=== PATIENT | female | born 1940 | race Caucasian/White ===

== ENCOUNTER 2019-05-15 10:53 | Inpatient (IN) | payer MEDICARE, OTHER ==
[~2019-05-15] VITALS: Ht 162.6 cm; Wt 71.2 kg
--- NOTE | 2019-05-15 11:29 | EKG ---
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
[2019-05-15 11:43] LABS: BASO # 0.1 x10^3/uL (0.0-0.2); BASO % 1 % (0-3); EOS # 0.6 x10^3/uL (0.0-0.7); EOS % 8 % (0-3); HEMATOCRIT 40.3 % (36.0-47.0); HEMOGLOBIN 13.2 g/dL (12.0-15.5); LYMPH % 30 % (24-48); MEAN CORPUSCULAR HEMOGLOBIN 30 pg (25-35); MEAN CORPUSCULAR HGB CONC 33 g/dL (31-37); MEAN CORPUSCULAR VOLUME 91 fL (79-100); MONO # 0.7 x10^3/uL (0.0-1.1); MONO % 10 % (0-9); NEUT # 3.5 x10^3uL (1.8-7.7); NEUT % 51 % (31-73); PLATELET COUNT 257 x10^3/uL (140-400); RED BLOOD COUNT 4.45 x10^6/uL (3.50-5.40); RED CELL DISTRIBUTION WIDTH 13.7 % (11.5-14.5); WHITE BLOOD COUNT 6.9 x10^3/uL (4.0-11.0)
[2019-05-15 12:02] LABS: ALBUMIN/GLOBULIN RATIO 0.7 (1.0-1.7); CALCIUM 9.4 mg/dL (8.5-10.1); CREATININE 0.9 mg/dL (0.6-1.0); GFR 60.6; MAGNESIUM 1.8 mg/dL (1.8-2.4); POTASSIUM 4.1 mmol/L (3.5-5.1); TOTAL BILIRUBIN 0.3 mg/dL (0.2-1.0); TOTAL PROTEIN 7.2 g/dL (6.4-8.2)
[2019-05-15 12:15] LABS: BACTERIA,URINE 0 /HPF (0-FEW); BILIRUBIN,URINE NEG (NEG); CLARITY,URINE CLEAR; COLOR,URINE YELLOW; GLUCOSE,URINE NEG (NEG); NITRITE,URINE NEG (NEG); RBC,URINE OCC /HPF (0-2); SQUAMOUS EPITHELIAL CELL,UR OCC /LPF; UROBILINOGEN,URINE 0.2 mg/dL (0.2 mg/dL); WBC,URINE OCC /HPF (0-4)
--- NOTE | 2019-05-15 12:18 | RAD ---
PORTABLE CHEST 1V INDICATION: Chest pain. COMPARISON STUDY: 02/12/2015. FINDINGS: Lungs: Normal lung volume. No pulmonary mass or consolidation. The tracheobronchial tree and hilar structures are normal. Pleura: No pleural effusion or pneumothorax. Heart and Mediastinum: The cardiomediastinal silhouette is normal. Tortuosity of the thoracic aorta. IMPRESSION: No acute cardiopulmonary process. Electronically signed by: Nitin Ugarte MD (05/15/2019 12:15 PM) [facility]
--- NOTE | 2019-05-15 12:40 | PHYS DOC ---
Past History Past Medical History: Dementia, Diabetes, High Cholesterol, Hypertension, UTI, Other Additional Past Medical Histor: OSTEOPORESIS Past Surgical History: Other Additional Past Surgical Histo: NO SURGICAL HX PROVIDED Alcohol Use: None Drug Use: None Adult General Chief Complaint Chief Complaint: SHORTNESS OF BREATH HPI HPI Patient is a 78-year-old female who arrives via EMS with report of chest tightne ss that started this morning. Patient indicates that when she woke this morning she had some dizziness and later developed the chest tightness. Patient states that she still has a tightness in her chest and she rates that at a 4 out of 10. She denies any nausea, vomiting or diaphoresis. She states that nothing seems to worsen or improve the symptoms.[] Review of Systems Review of Systems Constitutional: Denies fever or chills [] Respiratory: Denies cough or shortness of breath [] Cardiovascular: No additional information not addressed in HPI [] GI: Denies abdominal pain, nausea, vomiting or diarrhea [] Integument: Denies rash or skin lesions [] Neurologic: Denies headache, focal weakness or sensory changes [] All other systems were reviewed and found to be within normal limits, except as documented in this note. Allergies Allergies Allergies Coded Allergies Type Severity Reaction Last Updated Verified ampicillin Allergy Unknown 05/15/19 Yes Physical Exam Physical Exam Constitutional: Well developed, well nourished, no acute distress, non-toxic appearance. [] HENT: Normocephalic, atraumatic, bilateral external ears normal, oropharynx moist, no oral exudates, nose normal. [] Eyes: PERRLA, EOMI, conjunctiva normal, no discharge. [] Neck: Normal range of motion, no tenderness, supple, no stridor. [] Cardiovascular: Regular rate and rhythm[] Lungs & Thorax: Bilateral breath sounds clear to auscultation [] Abdomen: Bowel sounds normal, soft, no tenderness. [] Skin: Warm, dry, no erythema, no rash. [] Extremities: No tenderness, no cyanosis, no clubbing, ROM intact with 2+ pitting edema to bilateral lower extremities. [] Neurologic: Alert and oriented X 3, no focal deficits noted. [] Current Patient Data Vital Signs Vital Signs Date Time Temp Pulse Resp B/P (MAP) Pulse Ox O2 Delivery O2 Flow Rate FiO2 05/15/19 12:00 75 20 161/76 (104) 95 Room Air 05/15/19 10:55 97.6 Lab Results Laboratory Tests Test 05/15/19 11:27 05/15/19 11:37 White Blood Count 6.9 x10^3/uL (4.0-11.0) Red Blood Count 4.45 x10^6/uL (3.50-5.40) Hemoglobin 13.2 g/dL (12.0-15.5) Hematocrit 40.3 % (36.0-47.0) Mean Corpuscular Volume 91 fL (79-100) Mean Corpuscular Hemoglobin 30 pg (25-35) Mean Corpuscular Hemoglobin Concent 33 g/dL (31-37) Red Cell Distribution Width 13.7 % (11.5-14.5) Platelet Count 257 x10^3/uL (140-400) Neutrophils (%) (Auto) 51 % (31-73) Lymphocytes (%) (Auto) 30 % (24-48) Monocytes (%) (Auto) 10 % (0-9) H Eosinophils (%) (Auto) 8 % (0-3) H Basophils (%) (Auto) 1 % (0-3) Neutrophils # (Auto) 3.5 x10^3uL (1.8-7.7) Lymphocytes # (Auto) 2.0 x10^3/uL (1.0-4.8) Monocytes # (Auto) 0.7 x10^3/uL (0.0-1.1) Eosinophils # (Auto) 0.6 x10^3/uL (0.0-0.7) Basophils # (Auto) 0.1 x10^3/uL (0.0-0.2) Sodium Level 139 mmol/L (136-145) Potassium Level 4.1 mmol/L (3.5-5.1) Chloride Level 104 mmol/L (98-107) Carbon Dioxide Level 26 mmol/L (21-32) Anion Gap 9 (6-14) Blood Urea Nitrogen 15 mg/dL (7-20) Creatinine 0.9 mg/dL (0.6-1.0) Estimated GFR (Cockcroft-Gault) 60.6 BUN/Creatinine Ratio 17 (6-20) Glucose Level 87 mg/dL (70-99) Calcium Level 9.4 mg/dL (8.5-10.1) Magnesium Level 1.8 mg/dL (1.8-2.4) Total Bilirubin 0.3 mg/dL (0.2-1.0) Aspartate Amino Transferase (AST) 18 U/L (15-37) Alanine Aminotransferase (ALT) 18 U/L (14-59) Alkaline Phosphatase 75 U/L (46-116) Troponin I Quantitative < 0.017 ng/mL (0-0.055) GF-Lmx-Y-Type Natriuretic Peptide 87 pg/mL (0-449) Total Protein 7.2 g/dL (6.4-8.2) Albumin 3.0 g/dL (3.4-5.0) L Albumin/Globulin Ratio 0.7 (1.0-1.7) L Urine Collection Type Unknown Urine Color Yellow Urine Clarity Clear Urine pH 6.5 Urine Specific [place] 1.015 Urine Protein Neg (NEG-TRACE) Urine Glucose (UA) Neg mg/dL (NEG) Urine Ketones (Stick) Neg mg/dL (NEG) Urine Blood Neg (NEG) Urine Nitrite Neg (NEG) Urine Bilirubin Neg (NEG) Urine Urobilinogen Dipstick 0.2 mg/dL (0.2 mg/dL) Urine Leukocyte Esterase Neg (NEG) Urine RBC Occ /HPF (0-2) Urine WBC Occ /HPF (0-4) Urine Squamous Epithelial Cells Occ /LPF Urine Bacteria 0 /HPF (0-FEW) EKG EKG EKG demonstrates normal sinus rhythm with rate of 69.[] Radiology/Procedures Radiology/Procedures [] Impressions: PROCEDURE: PORTABLE CHEST 1V PORTABLE CHEST 1V INDICATION: Chest pain. COMPARISON STUDY: 02/12/2015. FINDINGS: Lungs: Normal lung volume. No pulmonary mass or consolidation. The tracheobronchial tree and hilar structures are normal. Pleura: No pleural effusion or pneumothorax. Heart and Mediastinum: The cardiomediastinal silhouette is normal. Tortuosity of the thoracic aorta. IMPRESSION: No acute cardiopulmonary process. Electronically signed by: Nitin Ugarte MD (05/15/2019 12:15 PM) [facility] Course & Med Decision Making Course & Med Decision Making Pertinent Labs and Imaging studies reviewed. (See chart for details) [] Dragon Disclaimer Dragon Disclaimer This electronic medical record was generated, in whole or in part, using a voice recognition dictation system. Departure Departure: Impression: Primary Impression: Chest pain Disposition: ADMITTED INPATIENT Admitting Physician: Marcy Ramos Condition: IMPROVED Referrals: JAYNA LUI MD (PCP) Problem Qualifiers Primary Impression: Chest pain Chest pain type: unspecified Qualified Codes: R07.9 - Chest pain, unspecified JUNAID MILTON Jr. DO May 15, 2019 12:40
[2019-05-15] MEDS ORDERED: MORPHINE SULFATE 2 MG/ML DISP.SYRIN. IV PRN (12:45)
[2019-05-15] MEDS ORDERED: ONDANSETRON PF 4 MG/2 ML VIAL. IV PRN (12:45)
[2019-05-15] MEDS ORDERED: ASPI-630 PO (15:07)
[2019-05-15] MEDS ORDERED: AMLO5TAB4 PO (15:07)
[2019-05-15] MEDS ORDERED: PARO10TA57 PO (15:07)
[2019-05-15] MEDS ORDERED: LOSA50TA86 PO (15:07)
[2019-05-15] MEDS ORDERED: ACET325T9 PO (15:07)
[2019-05-15] MEDS ORDERED: ATOR10TA60 PO (15:13)
[2019-05-15] MEDS ORDERED: LORA-254 PO (15:13)
[2019-05-15] MEDS ORDERED: OLOP2.5D5 OP (15:13)
[2019-05-15] MEDS ORDERED: FLUT16SP21 NS (15:13)
[2019-05-15] MEDS ORDERED: METF10007 PO (15:13)
[2019-05-15] MEDS ORDERED: MEMA10TA PO (15:13)
[2019-05-15] MEDS ORDERED: IBAN150T15 PO (15:13)
[2019-05-15 15:18] VITALS: BP 142/84
[2019-05-15] MEDS ORDERED: ACETAMINOPHEN 325 MG TABLET PO PRN (15:30)
[2019-05-15] MEDS ORDERED: LORazepam 0.5 MG TABLET PO PRN (15:45)
[2019-05-15] MEDS: metFORMIN 500 MG TABLET PO SCH (17:49)
[2019-05-15 19:00] VITALS: BP 138/77
[2019-05-15] MEDS: FLUTICASONE 50MCG/NASAL SPRAY 16GM BOTTLE. NS SCH (21:00)
[2019-05-15 23:00] VITALS: BP 143/79
[2019-05-16 03:00] VITALS: BP 136/82
[2019-05-16 06:22] LABS: BASO # 0.1 x10^3/uL (0.0-0.2); BASO % 1 % (0-3); EOS # 0.6 x10^3/uL (0.0-0.7); EOS % 9 % (0-3); HEMATOCRIT 40.9 % (36.0-47.0); HEMOGLOBIN 12.9 g/dL (12.0-15.5); LYMPH # 2.2 x10^3/uL (1.0-4.8); LYMPH % 34 % (24-48); MEAN CORPUSCULAR HEMOGLOBIN 29 pg (25-35); MEAN CORPUSCULAR HGB CONC 32 g/dL (31-37); MEAN CORPUSCULAR VOLUME 92 fL (79-100); MONO # 0.7 x10^3/uL (0.0-1.1); MONO % 10 % (0-9); NEUT % 46 % (31-73); PLATELET COUNT 254 x10^3/uL (140-400); RED BLOOD COUNT 4.46 x10^6/uL (3.50-5.40); RED CELL DISTRIBUTION WIDTH 13.8 % (11.5-14.5); WHITE BLOOD COUNT 6.5 x10^3/uL (4.0-11.0)
[2019-05-16 06:39] LABS: ALBUMIN/GLOBULIN RATIO 0.7 (1.0-1.7); CALCIUM 9.4 mg/dL (8.5-10.1); CREATININE 0.7 mg/dL (0.6-1.0); GFR 80.9; POTASSIUM 3.8 mmol/L (3.5-5.1); TOTAL BILIRUBIN 0.4 mg/dL (0.2-1.0); TOTAL PROTEIN 7.2 g/dL (6.4-8.2)
[2019-05-16] MEDS: FLUTICASONE 50MCG/NASAL SPRAY 16GM BOTTLE. NS SCH (07:53)
[2019-05-16] MEDS: metFORMIN 500 MG TABLET PO SCH (07:55)
[2019-05-16 08:00] VITALS: BP 146/81
--- NOTE | 2019-05-16 08:27 | PDOC2 ---
TRICIA BORREGO RESEARCH RN SPEC 05/16/19 0827: CARDIAC CONSULT DATE OF CONSULT Date Of Consult DATE: 05/16/19 TIME: 08:22 REASON FOR CONSULT Reason for Consult Chest pain REFERRING PHYSICIAN Referring Physician Dr. Malloy SOURCE Source: Chart review HPI History of Present Illness This is a 78 yo female who presented secondary to chest pain. Patient has a history of Alzheimer's Dementia and resides at a nursing facility. Apparently had episodes of chest tightness at the facility and was sent over for further evaluation and treatment. Patient does not recall having any chest pain and currently denies any chest pain, palpitations, dizziness, diaphoresis, or nausea/vomiting. PAST MEDICAL HISTORY Cardiovascular: HTN, hyperipidemia CENTRAL NERVOUS SYSTEM: Dementia (Alzheimer's ) Endocrine: Diabetes PAST SURGICAL HISTORY Past Surgical History: Tonsillectomy, Other (laminectomy ) FAMILY HISTORY Family History: Cancer, Diabetes SOCIAL HISTORY Smoke: Quit ALCOHOL: none Drugs: None Lives: Group Home CURRENT MEDICATIONS Current Medications Current Medications Ondansetron HCl (Zofran) 4 mg PRN Q4HRS PRN IV NAUSEA/VOMITING; Start 05/15/19 at 12:45; Stop 05/16/19 at 12:44 Morphine Sulfate (Morphine 2mg Syringe) 2 mg PRN Q2HR PRN IV PAIN; Start 05/15/19 at 12:45; Stop 05/16/19 at 12:44 Acetaminophen (Tylenol) 650 mg PRN Q4HRS PRN PO PAIN; Start 05/15/19 at 15:30 Amlodipine Besylate (Norvasc) 5 mg DAILY PO Last administered on 05/16/19at 07:54; Start 05/16/19 at 09:00 Aspirin (Children'S Aspirin) 81 mg DAILY PO Last administered on 05/16/19at 07 :54; Start 05/16/19 at 09:00 Atorvastatin Calcium (Lipitor) 10 mg DAILY PO Last administered on 05/16/19at 07:55; Start 05/16/19 at 09:00 Fluticasone Propionate (Flonase) 1 spray BID NS Last administered on 05/16/19at 07:53; Start 05/15/19 at 21:00 Lorazepam (Ativan) 0.5 mg PRN Q12HR PRN PO ANXIETY / AGITATION Last administered on 05/15/19at 17:49; Start 05/15/19 at 15:45 Losartan Potassium (Cozaar) 50 mg DAILY PO Last administered on 05/16/19at 07:54; Start 05/16/19 at 09:00 Memantine (Namenda) 5 mg DAILY PO Last administered on 05/16/19at 07:55; Start 05/16/19 at 09:00 Paroxetine HCl (Paxil) 10 mg DAILY PO Last administered on 05/16/19at 07:53; Start 05/16/19 at 09:00 Metformin HCl (Glucophage) 500 mg BIDWMEALS PO Last administered on 05/16/19at 07:55; Start 05/15/19 at 17:00 Lorazepam (Ativan Inj) 0.5 mg PRN Q4HRS PRN IVP ANXIETY / AGITATION; Start 05/15/19 at 18:30 Active Scripts Active Reported Boniva (Ibandronate Sodium) 150 Mg Tablet 1 Tab PO QMONTH Atorvastatin Calcium 10 Mg Tablet 1 Tab PO DAILY Fluticasone Propionate Nasal [place] (Fluticasone Propionate) 16 Gm [place].susp 1 Spr NS BID Metformin Hcl 1,000 Mg Tablet 1 Tab PO BID [place] (Olopatadine HCl) 2.5 Ml Drops 2.5 Ml OP DAILY Ativan (Lorazepam) 1 Mg Tablet 0.5 Tab PO Q12HR PRN MDD 2 Tablet(s) 30 Days Namenda (Memantine Hcl) 10 Mg Tablet 7 Mg PO DAILY Tylenol (Acetaminophen) 325 Mg Tablet 2 Tab PO PRN Q4HRS PRN Paxil (Paroxetine Hcl) 10 Mg Tablet 1 Tab PO DAILY 30 Days Cozaar (Losartan Potassium) 50 Mg Tablet 50 Mg PO DAILY Norvasc (Amlodipine Besylate) 5 Mg Tablet 1 Tab PO DAILY Aspirin 81 Mg Tab.chew 81 Mg PO DAILY ALLERGIES Allergies: Coded Allergies: ampicillin (Verified Allergy, Unknown, 05/15/19) ROS Review of Systems 14 point ROS conducted with pertinent positives noted above in HPI. PHYSICAL EXAM General: Alert (oriented to person only ), Cooperative, No acute distress HEENT: Atraumatic, Mucous membr. moist/pink Lungs: Clear to auscultation, Normal air movement Heart: Regular rate, Normal S1, Normal S2 Abdomen: Soft, No tenderness Extremities: No edema, Normal pulses Skin: No breakdown Neuro: Normal speech, Sensation intact Psych/Mental Status: Mood NL, Other (pleasantly confused ) MUSCULOSKELETAL: Osteoarthritic changes both hands VITALS Vital Signs Vital Signs Date Time Temp Pulse Resp B/P (MAP) Pulse Ox O2 Delivery O2 Flow Rate FiO2 05/16/19 07:54 80 05/16/19 03:00 97.9 136/82 (100) 93 05/15/19 15:18 22 Room Air LABS LABS Laboratory Tests Test 05/15/19 11:27 05/15/19 11:37 05/15/19 18:35 05/16/19 05:48 White Blood Count 6.9 x10^3/uL (4.0-11.0) 6.5 x10^3/uL (4.0-11.0) Red Blood Count 4.45 x10^6/uL (3.50-5.40) 4.46 x10^6/uL (3.50-5.40) Hemoglobin 13.2 g/dL (12.0-15.5) 12.9 g/dL (12.0-15.5) Hematocrit 40.3 % (36.0-47.0) 40.9 % (36.0-47.0) Mean Corpuscular Volume 91 fL (79-100) 92 fL (79-100) Mean Corpuscular Hemoglobin 30 pg (25-35) 29 pg (25-35) Mean Corpuscular Hemoglobin Concent 33 g/dL (31-37) 32 g/dL (31-37) Red Cell Distribution Width 13.7 % (11.5-14.5) 13.8 % (11.5-14.5) Platelet Count 257 x10^3/uL (140-400) 254 x10^3/uL (140-400) Neutrophils (%) (Auto) 51 % (31-73) 46 % (31-73) Lymphocytes (%) (Auto) 30 % (24-48) 34 % (24-48) Monocytes (%) (Auto) 10 % (0-9) 10 % (0-9) Eosinophils (%) (Auto) 8 % (0-3) 9 % (0-3) Basophils (%) (Auto) 1 % (0-3) 1 % (0-3) Neutrophils # (Auto) 3.5 x10^3uL (1.8-7.7) 3.0 x10^3uL (1.8-7.7) Lymphocytes # (Auto) 2.0 x10^3/uL (1.0-4.8) 2.2 x10^3/uL (1.0-4.8) Monocytes # (Auto) 0.7 x10^3/uL (0.0-1.1) 0.7 x10^3/uL (0.0-1.1) Eosinophils # (Auto) 0.6 x10^3/uL (0.0-0.7) 0.6 x10^3/uL (0.0-0.7) Basophils # (Auto) 0.1 x10^3/uL (0.0-0.2) 0.1 x10^3/uL (0.0-0.2) Sodium Level 139 mmol/L (136-145) 140 mmol/L (136-145) Potassium Level 4.1 mmol/L (3.5-5.1) 3.8 mmol/L (3.5-5.1) Chloride Level 104 mmol/L (98-107) 104 mmol/L (98-107) Carbon Dioxide Level 26 mmol/L (21-32) 26 mmol/L (21-32) Anion Gap 9 (6-14) 10 (6-14) Blood Urea Nitrogen 15 mg/dL (7-20) 16 mg/dL (7-20) Creatinine 0.9 mg/dL (0.6-1.0) 0.7 mg/dL (0.6-1.0) Estimated GFR (Cockcroft-Gault) 60.6 80.9 BUN/Creatinine Ratio 17 (6-20) 23 (6-20) Glucose Level 87 mg/dL (70-99) 103 mg/dL (70-99) Calcium Level 9.4 mg/dL (8.5-10.1) 9.4 mg/dL (8.5-10.1) Magnesium Level 1.8 mg/dL (1.8-2.4) 2.0 mg/dL (1.8-2.4) Total Bilirubin 0.3 mg/dL (0.2-1.0) 0.4 mg/dL (0.2-1.0) Aspartate Amino Transf (AST/SGOT) 18 U/L (15-37) 16 U/L (15-37) Alanine Aminotransferase (ALT/SGPT) 18 U/L (14-59) 17 U/L (14-59) Alkaline Phosphatase 75 U/L (46-116) 79 U/L (46-116) Troponin I Quantitative < 0.017 ng/mL (0-0.055) < 0.017 ng/mL (0-0.055) DY-Iip-R-Type Natriuretic Peptide 87 pg/mL (0-449) Total Protein 7.2 g/dL (6.4-8.2) 7.2 g/dL (6.4-8.2) Albumin 3.0 g/dL (3.4-5.0) 3.0 g/dL (3.4-5.0) Albumin/Globulin Ratio 0.7 (1.0-1.7) 0.7 (1.0-1.7) Urine Collection Type Unknown Urine Color Yellow Urine Clarity Clear Urine pH 6.5 Urine Specific [place] 1.015 Urine Protein Neg (NEG-TRACE) Urine Glucose (UA) Neg mg/dL (NEG) Urine Ketones (Stick) Neg mg/dL (NEG) Urine Blood Neg (NEG) Urine Nitrite Neg (NEG) Urine Bilirubin Neg (NEG) Urine Urobilinogen Dipstick 0.2 mg/dL (0.2 mg/dL) Urine Leukocyte Esterase Neg (NEG) Urine RBC Occ /HPF (0-2) Urine WBC Occ /HPF (0-4) Urine Squamous Epithelial Cells Occ /LPF Urine Bacteria 0 /HPF (0-FEW) ECHOCARDIOGRAM Echocardiogram <Conclusion> The left ventricle is normal size. There is borderline concentric left ventricular hypertrophy. The left ventricular systolic function is normal.. The Ejection Fraction is 70%. Is a grade I diastolic dysfunction both by interrogation of the mitral valve inlet and the pulmonic vein. There is a mild increase in left atrial filling pressure. There is no pericardial effusion. There is no mitral stenosis and a mild mitral regurgitation. Left atrium is not enlarged. Aortic valve is tricuspid. There is no aortic stenosis or regurgitation. The right ventricle and the right atrium are of normal size. Doppler and Color Flow revealed mild tricuspid regurgitation. The PA pressure was estimated at 34 mmHg There is a trace pulmonic regurgitation. DATE: 02/13/15 1025 ASSESSMENT/PLAN Assessment/Plan 1. Chest pain, details limited due to AD. AMI ruled out 2. Hypertension; controlled 3. Hyperlipidemia; statin 4. Diabetes, II 5. Alzheimer's Dementia Recommendations Continue ASA, statin therapy Supportive care from a CV MICHA HERNANDEZ MD 05/16/19 1647: CARDIAC CONSULT ASSESSMENT/PLAN Assessment/Plan Pt. seen and examined. Agree with above NECK CUTTER note. Elderly patient with dementia with atypical chest pain. No acute findings. EKG/enzymes wnl. Supportive care only. Thanks. TRICIA BORREGO APRN May 16, 2019 08:27 MICHA HERNANDEZ MD May 16, 2019 16:47
[2019-05-16] MEDS ORDERED: PARoxetine 10 MG TABLET PO SCH (09:00)
[2019-05-16] MEDS ORDERED: ATORVASTATIN CALCIUM 10 MG TABLET. PO SCH (09:00)
[2019-05-16] MEDS ORDERED: LOSARTAN 50 MG TABLET. PO SCH (09:00)
[2019-05-16] MEDS ORDERED: amLODIPine BESYLATE 5 MG TABLET PO SCH (09:00)
[2019-05-16] MEDS ORDERED: ASPIRIN 81 MG TAB.CHEW PO SCH (09:00)
[2019-05-16] MEDS ORDERED: MEMANTINE 5 MG TABLET. PO SCH (09:00)
[2019-05-16 11:18] VITALS: BP 132/81
[2019-05-16 13:30] VITALS: BP 129/84
--- NOTE | 2019-05-16 15:52 | DS ---
DATE OF DISCHARGE: 05/16/2019 HOSPITAL COURSE: The patient was admitted yesterday with a complaint of chest pain. She has had 2 sets of cardiac enzymes that were ruled out myocardial infarction. She was seen in consultation by the Cardiology team and a decision was made to discharge her back to [facility] to continue same medication. No further invasive procedures or ischemic workup was recommended. When I saw her this afternoon, she was sitting at the edge of the bed comfortably in no apparent distress. Denied any chest pain or shortness of breath, has been up and about, very confused, but pleasantly. PHYSICAL EXAMINATION: GENERAL: When I saw her, she was pale, but no jaundice, cyanosis or thyromegaly. No jugular venous distension. No lower limb edema. VITAL SIGNS: Her heart rate was 84, blood pressure was 142/84, temperature was 98.5, respiratory rate was 22, and oxygen saturation was 99% on room air. The rest of clinical examination is stable. LABORATORY DATA: Her lab work this morning showed a white cell count of 6500, hemoglobin 13, hematocrit 41, MCV 92, and platelet count 254,000. Her chemistry showed a serum sodium 140, potassium 3.8, chloride 104, bicarbonate 26, anion gap of 10, BUN 16, creatinine 0.7, estimated GFR was 80 mL per minute. Her glucose 103, calcium was 9.4, magnesium was 2. Total bilirubin, AST, ALT, alkaline phosphatase were normal. Total protein was 7.2, albumin was 3. Her serum triglycerides 122. Total cholesterol 185, LDL was 113, VLDL was 24, HDL cholesterol was 48 and the ratio 3. Urinalysis was essentially unremarkable. DISCHARGE MEDICATIONS: She was discharged back to [facility] to continue on her Tylenol 650 mg every 4 hours as needed, amlodipine besylate 5 mg once a day, aspirin 81 mg once a day, atorvastatin calcium 10 mg daily, Flonase 1 spray to each nostril twice a day. She is on Boniva 150 mg once a month, lorazepam 0.5 mg every 12 hours as needed, losartan potassium 50 mg once a day, Namenda 7 mg daily, metformin 1000 mg twice a day, olopatadine 1 drop to both eyes daily, and paroxetine for Paxil 10 mg once a day. FINAL DISCHARGE DIAGNOSES: Chest pain, myocardial infarction was ruled out, hypertension, hyperlipidemia, type 2 diabetes, and Alzheimer's dementia. MIKE CAR MD DR: REJI/bisi JOB#: [id number] / [id number]
--- NOTE | 2019-05-16 18:13 | HP ---
ADMIT DATE: 05/15/2019 HISTORY OF PRESENT ILLNESS: The patient is a 78-year-old female patient, a resident at [facility], who was brought to the Emergency Room by emergency medical service ____ report of chest tightness that started in the morning of admission. She indicated that when she woke this morning, she had some dizziness and later developed chest tightness. The patient stated that she still has tightness in her chest and she rates her pain as 4/10; however, she denied any nausea, vomiting, or diaphoresis. She stated that nothing seems to worsen or improve the symptoms. She was evaluated in the Emergency Room and has had an EKG and her EKG showed that she was in normal sinus rhythm with the heart rate of 69. Her chest x-ray showed that she has normal lung volumes, no pleural or pulmonary masses or consolidation, and the tracheobronchial tree and hilar structures are normal. There is no pleural fluid or pneumothorax. The heart and mediastinum are normal. Her first set of cardiac enzyme was less than 0.017. The patient was admitted to do 2 more sets of cardiac enzyme and consult the cardiology team to decide on further management accordingly. PAST MEDICAL HISTORY: Significant for hypertension, hyperlipidemia, and type 2 diabetes. She has also dementia of Alzheimer type. PAST SURGICAL HISTORY: Significant for tonsillectomy and laminectomy. FAMILY HISTORY: Positive for cancer and diabetes. SOCIAL HISTORY: She is and currently lives at [facility]. She does quit smoking years ago. She does not drink alcohol or use any recreational drugs. REVIEW OF SYSTEMS: As per history of present illness. ALLERGIES: She is allergic to AMPICILLIN. MEDICATIONS: She is on atorvastatin calcium 10 mg daily, amlodipine besylate 5 mg daily, losartan potassium 50 mg once a day, aspirin 81 mg once a day, acetaminophen 650 mg every 4 hours, paroxetine 10 mg daily, lorazepam 1 mg, 0.5 mg every 12 hours as needed. She is on Namenda 7 mg daily. She is on olopatadine 1 drop to both eyes daily. She is on Flonase one spray to each nostril twice a day and metformin 1000 mg twice a day. She is on Boniva 150 mg once a month. PHYSICAL EXAMINATION: GENERAL: On arrival to the Emergency Room, the patient looked well and was clearly in no apparent respiratory distress, pale, no jaundice, cyanosis, or thyromegaly. No jugular venous distension. No limb edema. VITAL SIGNS: Her heart rate was 73, blood pressure was 157/80, temperature was 97.6, respiratory rate 20, and oxygen saturation was 96% to room air. HEAD, EYES, EARS, NOSE, AND THROAT: Showed normocephalic and atraumatic. NECK: Supple. HEART: Showed normal first and second heart sounds. No gallop or murmur. CHEST: Clear to auscultation. No crepitation or rhonchi. ABDOMEN: Distended, soft, and nontender. No guarding or rigidity. No organomegaly. All hernial orifices are intact. Bowel sounds normal. NEUROLOGIC: She is demented, but without any obvious lateralizing sign. LABORATORY WORK: On admission showed a white cell count of ____, potassium 4.1, chloride 104, bicarbonate 26, anion gap of 9, BUN 15, and creatinine 0.9. Estimated GFR was 60 mL per minute. Her glucose was ____, calcium was 9.4, and magnesium was 1.8. Total bilirubin, AST, ALT, and alkaline phosphatase were normal. Her first set of cardiac enzymes showed troponin to be less than 0.017. Her beta natriuretic peptide was 187. Total protein was 7.2 and albumin 3. Her white cell count was 6900, hemoglobin 13.2, hematocrit 40, MCV 91, and platelet count 257,000. Urinalysis was essentially unremarkable. Her chest x-ray showed lung volumes are normal. There were no pulmonary masses or consolidation. Tracheobronchial tree and hilar structures are normal. There is no pleural effusion or pneumothorax. The heart and mediastinum showed the cardiomediastinal silhouette is normal and she has a tortuous thoracic aorta; however, the impression is that the patient has no acute cardiopulmonary process. PLAN: To admit the patient to do 2 more sets of cardiac enzyme, consult the cardiology, and decide the further management accordingly. Given her age and dementia, probably no aggressive measures will be considered. MIKE CAR MD DR: REJI/bisi JOB#: [id number] / [id number]
== END 2019-05-16 15:30 | disposition home or self-care (01) | DRG 392 ==
LOC: ER 10:53 → ICU 12:40
PROVIDERS: ADMIT Internal Medicine; ATTEND Internal Medicine
DX: K21.9 Gastro-esophageal reflux disease without esophagitis (principal); E78.00 Pure hypercholesterolemia, unspecified; E11.9 Type 2 diabetes mellitus without complications; I10 Essential (primary) hypertension; E78.5 Hyperlipidemia, unspecified; G30.9 Alzheimer's disease, unspecified; F02.80 Dementia in other diseases classified elsewhere, unspecified severity, without behavioral disturbance, psychotic disturbance, mood disturbance, and anxiety; Z88.0 Allergy status to penicillin; Z83.3 Family history of diabetes mellitus; Z87.891 Personal history of nicotine dependence
CPT/HCPCS: 36415; 71045; 80053; 80061; 81001; 83735; 83880; 84484; 85025; 93005; 99285-25

== ENCOUNTER 2020-12-24 10:56 | Emergency (ER) | payer MEDICARE, OTHER ==
[~2020-12-24] VITALS: Ht 162.6 cm; Wt 64.3 kg
[2020-12-24 10:56] VITALS: BP 149/80
[~2020-12-24 10:56] MED LIST: ACET325T9 PO; AMLO5TAB4 PO; ASPI-630 PO; ATOR10TA60 PO; FLUT16SP21 NS; IBAN150T15 PO; LORA-254 PO; LOSA50TA86 PO; MEMA10TA PO; METF10007 PO; OLOP2.5D5 OP; PARO10TA57 PO
--- NOTE | 2020-12-24 11:30 | PHYS DOC ---
Past History Past Medical History: Dementia, Depression, Diabetes, High Cholesterol, Hypertension, UTI, Other Additional Past Medical Histor: OSTEOPORESIS Past Surgical History: Other Additional Past Surgical Histo: NO SURGICAL HX PROVIDED Alcohol Use: None Drug Use: None Adult General Chief Complaint Chief Complaint: MECHANICAL FALL HPI HPI Patient is a 80-year-old female presenting via EMS from local [facility] for hip pain. It was reported that patient had an unwitnessed fall without loss of consciousness or head injury earlier in the day. It was reported injury occurred greater than 12 hours ago. Despite patient being ambulatory, decision was made to send patient to our ER for evaluation. On arrival, patient hemodynamically stable. Denies any actual fall, states she stumbled and landed on couch. No hip injury that she can recall, no loss of consciousness, no motor, sensory or neurologic deficits reported Review of Systems Review of Systems Fourteen body systems of review of systems have been reviewed. See HPI for pertinent positives and negative responses, other freeman all other systems are negative, non-pertinent or non-contributory Allergies Allergies Allergies Coded Allergies Type Severity Reaction Last Updated Verified ampicillin Allergy Unknown 05/15/19 Yes Physical Exam Physical Exam Constitutional: Pt is oriented to person, place, and time. Pt appears well-developed and well- nourished. HEENT: Head: Normocephalic and atraumatic. TMs clear, no hemotympanum Conjunctivae and EOM are normal. Pupils are equal, round, and reactive to light. Oropharynx is clear and moist. No hematomas or lacerations or abrasions to face or scalp OP clear, no blood, no malocclusion, dentition intact Nares clear, no nasal septal hematoma Midface stable Neck: C-spine midline nontender, no step-offs Cardiovascular: Normal rate, regular rhythm and normal heart sounds. Pulmonary/Chest: Effort normal and breath sounds normal. No respiratory distress. No wheezes. CTA bilaterally Abdominal: Soft. Bowel sounds are normal. Pt exhibits no distension. There is no tenderness. Musculoskeletal: No bony tenderness to extremities, no deformities, full ROM extremities Chest wall stable Pelvis stable and non-tender No vertebral TTP and spine without stepoffs Neurological: Pt is alert and oriented to person, place, and time. Moving all extremities willfully, able to wiggle all fingers and toes Alert and oriented x 3 Motor and sensory function intact No saddle anesthesia Bilateral patellar reflexes 2+ Cranial nerves II through XII intact Skin: Skin is warm and dry. No abrasions, no lacerations Psychiatric: Behavior is appropriate for situation. Judgment appears slightly impaired that is likely at baseline and known dementia patient Current Patient Data Vital Signs Vital Signs Date Time Temp Pulse Resp B/P (MAP) Pulse Ox O2 Delivery O2 Flow Rate FiO2 12/24/20 10:56 97.8 70 16 149/80 (103) 95 Room Air EKG EKG [] Radiology/Procedures Radiology/Procedures XR HIP (WITH OR WITHOUT PELVIS) 1 VIEW 12/24/2020 11:07 AM INDICATION: Injury COMPARISON: None available. TECHNIQUE: AP view the pelvis and single view of each hip are provided. FINDINGS/ IMPRESSION: There is no acute fracture or dislocation. Mild inferomedial joint space narrowing of the hips without significant marginal osteophytosis compatible with mild osteoarthrosis. Bone mineralization is within normal limits. Regional soft tissues are within normal limits. There is no soft tissue gas or osseous erosion. No radiopaque foreign body. Mild to moderate lumbar spondylosis. Electronically signed by: Paola Garces MD (12/24/2020 12:04 PM) [id number] Heart Score C/O Chest Pain: No Risk Factors: Risk Factors: DM, Current or recent (<one month) smoker, HTN, HLP, family history of CAD, obesity. Risk Scores: Risk Factors: DM, Current or recent (<one month) smoker, HTN, HLP, family history of CAD, obesity. Course & Med Decision Making Course & Med Decision Making Discussed with the patient all findings and diagnostic testing nonconcerning for any emergent or surgical issues. Patient remained asymptomatic, ambulatory and in no acute distress throughout entirety of ER visit. I discussed there is little indication for further diagnostic work-up in ER setting. Results were communicated to [facility] he felt reassured based on formal physical evaluation and radiographs. Joint decision among all to defer any CT head imaging given extent of reported fall. Nonetheless, I stressed need for close outpatient follow-up to review today's ER visit. Strict return precautions were also discussed at length with good understanding by patient. Patient voiced understanding and agreement with the plan. Patient knows to come back for repeat evaluation if concerning signs or symptoms present prior to outpatient follow- up. Instructions were sent with patient for [facility] which were also communicated to [facility] staff and event patient does not fully recall portions of return precautions discussed today. Hemodynamically stable, amb ulatory and well-appearing at time of disposition. Dragon Disclaimer Dragon Disclaimer This electronic medical record was generated, in whole or in part, using a voice recognition dictation system. Departure Departure: Impression: Primary Impression: Hip pain Disposition: HOME / SELF CARE / HOMELESS Condition: STABLE Referrals: JAYNA LUI MD (PCP) Patient Instructions: Hip Exercises, Generic, SportsMed, Hip Pain Additional Instructions: You were seen for musculoskeletal pain. Your pain is most likely due to a muscle strain and should improve with Tylenol, stretching, and activity. If it does not improve you should follow up with a primary care doctor. You should return to the ED if you develop worsening pain, fever, numbness, tingling, weakness, bladder or bowel incontinence, or any other new or concerning symptoms. BETZY COLLINS DO Dec 24, 2020 11:29
--- NOTE | 2020-12-24 12:07 | RAD ---
XR HIP (WITH OR WITHOUT PELVIS) 1 VIEW 12/24/2020 11:07 AM INDICATION: Injury COMPARISON: None available. TECHNIQUE: AP view the pelvis and single view of each hip are provided. FINDINGS/ IMPRESSION: There is no acute fracture or dislocation. Mild inferomedial joint space narrowing of the hips withou t significant marginal osteophytosis compatible with mild osteoarthrosis. Bone mineralization is with in normal limits. Regional soft tissues are within normal limits. There is no soft tissue gas or osse ous erosion. No radiopaque foreign body. Mild to moderate lumbar spondylosis. Electronically signed by: Paola Garces MD (12/24/2020 12:04 PM) [id number]
== END 2020-12-24 12:52 | disposition home or self-care (01) ==
LOC: ER 10:56
DX: M25.552 Pain in left hip (principal); F03.90 Unspecified dementia, unspecified severity, without behavioral disturbance, psychotic disturbance, mood disturbance, and anxiety; F32.9 Major depressive disorder, single episode, unspecified; E11.9 Type 2 diabetes mellitus without complications; E78.00 Pure hypercholesterolemia, unspecified; I10 Essential (primary) hypertension; Z87.440 Personal history of urinary (tract) infections; Z88.1 Allergy status to other antibiotic agents; W18.39XA Other fall on same level, initial encounter; Y93.89 Activity, other specified; Y92.89 Other specified places as the place of occurrence of the external cause; Y99.8 Other external cause status
CPT/HCPCS: 73521; 99284

== ENCOUNTER 2021-07-09 03:05 | Emergency (ER) | payer OTHER ==
[~2021-07-09] VITALS: Ht 162.6 cm; Wt 64.3 kg
--- NOTE | 2021-07-09 03:22 | PHYS DOC ---
Past History Past Medical History: Dementia, Depression, Diabetes, High Cholesterol, Hypertension, UTI, Other Additional Past Medical Histor: OSTEOPORESIS Past Surgical History: Other Additional Past Surgical Histo: NO SURGICAL HX PROVIDED Alcohol Use: None Drug Use: None Adult General HPI HPI Patient is an 80-year-old female with end-stage dementia who presents from her correction after falling from standing per correction staff. Staff states that she did not lose consciousness but was unable to get up. Denies any other recent traumas, falls, illnesses, fevers, complaints of pain, nausea, vomiting. States that she is at baseline mentation for her but worried that she may have broken bone. Review of Systems Review of Systems Review of systems otherwise unremarkable except noted in HPI Allergies Allergies Allergies Coded Allergies Type Severity Reaction Last Updated Verified ampicillin Allergy Unknown 05/15/19 Yes Physical Exam Physical Exam Constitutional: Well developed, well nourished, no acute distress, non-toxic appearance. [] HENT: Normocephalic, atraumatic, bilateral external ears normal, oropharynx moist, no oral exudates, nose normal. [] Eyes: PERRLA, EOMI, conjunctiva normal, no discharge. [] Neck: Normal range of motion, no tenderness, supple, no stridor. [] Cardiovascular:Heart rate regular rhythm, no murmur [] Lungs & Thorax: Bilateral breath sounds clear to auscultation [] Abdomen: Bowel sounds normal, soft, no tenderness, no masses, no pulsatile masses. [] Skin: Warm, dry, no erythema, no rash. [] Back: No midline tenderness throughout spine, bruising or deformities Extremities: No tenderness, no cyanosis, no clubbing, ROM intact, no edema. [] Neurologic: Alert and oriented to person but not place or time, baseline motor and sensory function, cranial nerves intact Psychologic: Anxious, dementia, at baseline per correction/EMS EKG EKG [] Radiology/Procedures Radiology/Procedures [] Heart Score C/O Chest Pain: No Risk Factors: Risk Factors: DM, Current or recent (<one month) smoker, HTN, HLP, family history of CAD, obesity. Risk Scores: Risk Factors: DM, Current or recent (<one month) smoker, HTN, HLP, family history of CAD, obesity. Course & Med Decision Making Course & Med Decision Making Patient is an 80-year-old female who presents from the correction after a fall from standing Vital signs not concerning. Physical exam noted above. Given small dose of benzodiazepine for anxiety and agitation to allow for imaging Imaging with no acute osseous abnormalities but showing circumferential bladder wall thickening which with her urinalysis suggestive of urinary tract infection as well as a small area of centrilobular groundglass nodules in the right upper lobe consistent with infectious bronchiolitis or aspiration bronchiolitis. Started on p.o. Levaquin as she is allergic to penicillins. Discussed findings with patient and correction. Sent back to correction with prescription of Levaquin. [] Dragon Disclaimer Dragon Disclaimer This electronic medical record was generated, in whole or in part, using a voice recognition dictation system. Departure Departure: Impression: Primary Impression: Fall Additional Impressions: Urinary tract infection Respiratory infection Disposition: 03 ASSISTED FACILITY Condition: STABLE Referrals: JAYNA LUI MD (PCP) Patient Instructions: Bronchiolitis, Urinary Tract Infection Additional Instructions: .Thank you for coming into the emergency department tonight and allowing us to take care of you. Please be sure that you and your nursing staff read the attached information carefully to go back over some of the things we discussed. Please take your antibiotics as prescribed and until gone. Is very important you follow-up this morning with your primary care physician to discuss your diagnosis and set up appointments as soon as possible for reevaluation. Please come back to the ED with new or concerning symptoms as we discussed. Scripts Levofloxacin (LEVOFLOXACIN) 500 Mg Tablet 1 TAB PO DAILY for UTI, PNA for 6 Days, #6 TAB Prov: ROSALINA TIJERINA MD 07/09/21 Problem Qualifiers ROSALINA TIJERINA MD Jul 09, 2021 03:22
[2021-07-09] MEDS ORDERED: MIDAZOLAM HCL PF 5 MG/5 ML VIAL. IM ONE (03:30)
[2021-07-09 03:57] VITALS: BP 159/87
[2021-07-09 04:03] LABS: BILIRUBIN,URINE NEG (NEG); CLARITY,URINE HAZY; COLOR,URINE YELLOW; GLUCOSE,URINE NEG (NEG)
[2021-07-09 04:04] LABS: BACTERIA,URINE MANY /HPF (0-FEW); NITRITE,URINE POS (NEG); RBC,URINE OCC /HPF (0-2); SQUAMOUS EPITHELIAL CELL,UR FEW /LPF; UROBILINOGEN,URINE 0.2 mg/dL (0.2 mg/dL); WBC,URINE >40 /HPF (0-4)
--- NOTE | 2021-07-09 04:33 | RAD ---
CT CHEST_ABDOMEN_ AND PELVIS WITHOUT CONTRAST INDICATION: Fall, confusion, chest and abdomen pain, dementia COMPARISON: None. TECHNIQUE: Multiple contiguous axial images were obtained throughout the chest, abdomen, and pelvis without the use of IV contrast. Axial images were reformatted into coronal and sagittal planes. One or more of th e following dose reduction techniques were utilized: Automated exposure control (AEC), Adjustment of mA and/or kV according to patient size, Use of iterative reconstruction technique such as ASiR, CT sc an done according to ALARA and image gently/image wisely. FINDINGS: Multiple thyroid nodules, largest measuring 1.7 cm. There is no axillary, mediastinal, or hilar lisa opathy, although evaluation of the leydi is limited without IV contrast. The thoracic aorta diameter is normal. The cardiac size is normal. Coronary artery atherosclerotic di sease. There is no pericardial effusion. The central airways are patent. Mild centrilobular groundglass nodules in the right upper lobe. No pl eural abnormality. Evaluation of solid abdominal viscera is limited without the use of IV contrast. However, the liver, gallbladder, spleen, pancreas, and adrenal glands are unremarkable. No hydronephrosis or opaque uri nary calculi. There is no significant mesenteric or retroperitoneal adenopathy identified, though ev aluation is limited without intravenous contrast. There is no evidence of free intraperitoneal fluid or pneumoperitoneum. Colonic diverticulosis. Moderate aortoiliac atherosclerotic disease Circumferential bladder wall thickened. There is no significant pelvic ascites. No significant andrea c or inguinal adenopathy is identified. No acute osseous abnormality. Degenerative changes of the spine. IMPRESSION: 1. No evidence of major traumatic thoracic injury. No abdominal solid organ injury. No acute fracture . 2. Circumferential bladder wall thickening, which may represent cystitis. Consider urinalysis. 3. Small area of centrilobular groundglass nodules in the right upper lobe, probably an infectious br onchiolitis or aspiration bronchiolitis. 4. Several thyroid nodules, largest measuring 1.7 cm. These could be further characterized with ultra sound if not performed previously. 5. Colonic diverticulosis. Electronically signed by: Nitin Ugarte MD (07/09/2021 4:31 AM) [facility]
[2021-07-09] MEDS ORDERED: LEVO500T9 PO (04:52)
[2021-07-09] MEDS ORDERED: CIPROFLOXACIN HCL 500 MG TABLET PO ONE (05:00)
[2021-07-09] MEDS ORDERED: levoFLOXacin 500 MG TABLET PO ONE (05:30)
--- NOTE | 2021-07-09 05:33 | RAD ---
CT HEAD/BRAIN WO Date: 07/09/2021 3:24 AM Clinical Indication: fall, confusion. Hx: Dementia Comparison: None. Technique: 5 mm axial tomographic images were obtained of the head without contrast. These were view ed on brain and bone windows. One or more of the following dose reduction techniques were utilized: A utomated exposure control (AEC), Adjustment of mA and/or kV according to patient size, Use of iterati ve reconstruction technique such as ASiR, CT scan done according to ALARA and image gently/image freeman ly Findings: Mild generalized cerebral and cerebellar volume loss. Moderate nonspecific periventricular hypoattenu ation, most commonly seen with chronic small vessel ischemic disease. Calcified atherosclerosis of th e bilateral cavernous and paraclinoid internal carotid arteries and intracranial vertebral arteries. No intra- or extra-axial mass or fluid collection. No acute hemorrhage. The ventricles are normal in size, shape, and morphology. The reid-white matter junction is normal. The subarachnoid cisterns are patent. The visualized paranasal sinuses are normal. The visualized portions of the orbits and globes are no rmal. The mastoid air cells are clear. 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 Impression: No acute intracranial process. Mild cerebral volume loss. Moderate chronic small vessel ischemic disease. Electronically signed by: Nitin Ugarte MD (07/09/2021 5:30 AM) [facility]
== END 2021-07-09 05:33 | disposition home or self-care (01) ==
LOC: ER 03:05
DX: N39.0 Urinary tract infection, site not specified (principal); J98.8 Other specified respiratory disorders; E11.9 Type 2 diabetes mellitus without complications; E78.5 Hyperlipidemia, unspecified; I10 Essential (primary) hypertension; Z88.0 Allergy status to penicillin
CPT/HCPCS: 70450; 71250; 74176; 81001; 87086; 96372; 99284; J2250; 87077; 87186

== ENCOUNTER 2021-09-15 08:34 | Emergency (ER) | payer OTHER ==
[~2021-09-15] VITALS: Ht 160 cm; Wt 54.0 kg
[~2021-09-15 08:34] MED LIST changes: +LEVO500T9 PO
--- NOTE | 2021-09-15 08:43 | PHYS DOC ---
Past History Past Medical History: Dementia, Depression, Diabetes, High Cholesterol, Hypertension, UTI, Other Additional Past Medical Histor: OSTEOPORESIS Past Surgical History: Other Additional Past Surgical Histo: NO SURGICAL HX PROVIDED Alcohol Use: None Drug Use: None General Adult EDM: Chief Complaint: MECHANICAL FALL HPI: HPI: Patient is a 80-year-old female brought in by EMS from [facility] after mechanical fall. Patient fell forward been she lost her balance. Fall was witnessed, there is no loss of consciousness. Patient takes a baby aspirin but no other blood thinners. Patient was prone on EMS arrival and c-collar placed. Patient is a history of dementia but is alert and cooperative Review of Systems: Review of Systems: All other systems within normal limits except for as noted in the HPI Allergies: Allergies: Allergies Coded Allergies Type Severity Reaction Last Updated Verified ampicillin Allergy Unknown 05/15/19 Yes Physical Exam: PE: Constitutional: Well developed, well nourished, no acute distress, non-toxic appearance. [] HENT: Normocephalic, atraumatic, bilateral external ears normal, nose normal. [] Eyes: PERRLA, conjunctiva normal, no discharge. [] Neck: No rigidity, supple, no stridor. No tenderness, c-collar in place [] Cardiovascular: Regular rate and rhythm, brisk cap refill [] Lungs & Thorax: Non labored symmetric respirations, no tachypnea or respiratory distress. No chest tenderness to palpation, no crepitus [] Abdomen: Soft, nondistended nontender. Skin: Warm, dry, no erythema, no rash. [] Back: Unremarkable Extremities: No deformities, range of motion grossly intact, no lower extremity edema. No tenderness to palpation of upper or lower extremities. [] Neurologic: Alert and oriented X 3, no focal deficits noted. [] Psychologic: Affect normal, judgement normal, mood normal. [] EKG: EKG: [] Radiology/Procedures: Radiology/Procedures: [][address] [address] IMAGING REPORT Signed PATIENT: MINOR VOGT AACCOUNT: [id number] : 1940 LOCATION: ER AGE: 80 SEX: F EXAM STATUS: REG ER ORD. PHYSICIAN: MIKHAIL XAVIER MD REASON: fall PROCEDURE: CT CHEST ABDOMEN PELVIS WO CT CHEST_ABDOMEN_ AND PELVIS WITHOUT CONTRAST INDICATION: Pain, fall COMPARISON: None. TECHNIQUE: Multiple contiguous axial images were obtained throughout the chest, abdomen, and pelvis without the use of IV contrast. Axial images were reformatted into coronal and sagittal planes. One or more of the following dose reduction techniques were utilized: Automated exposure control (AEC), Adjustment of mA and/or kV according to patient size, Use of iterative reconstruction technique such as ASiR, CT scan done according to ALARA and image gently/image wisely. FINDINGS: Chest Findings: There is no axillary, mediastinal, or hilar adenopathy, although evaluation of the leydi is limited without IV contrast. The thoracic aorta diameter is normal. The cardiac size is normal. Coronary artery atherosclerotic disease There is no pericardial effusion. The central airways are patent. Lungs are clear. No pleural abnormality. Abdomen findings: Evaluation of solid abdominal viscera is limited without the use of IV contrast. However, the liver, gallbladder, spleen, pancreas, and adrenal glands are unremarkable. The kidneys are unremarkable. There is no significant mesenteric or retroperitoneal adenopathy identified, though evaluation is limited without intravenous contrast. There is no evidence of free intraperitoneal fluid or pneumoperitoneum. Colonic diverticulosis. Diffuse aortoiliac atherosclerotic disease Pelvis findings: The bladder and distal ureters are unremarkable. There is no significant pelvic ascites. No significant iliac or inguinal adenopathy is identified. Degenerative changes of the spine. Left convex lumbar curvature. IMPRESSION: No evidence of major traumatic thoracic injury. No abdominal solid organ injury. Electronically signed by: Pa Ugarte MD (09/15/2021 9:39 AM) [id number] DICTATED AND SIGNED BY: PA UGARTE MD DATE: 09/15/21932 CC: JAYNA LUI MD; MIKHAIL XAVIER MD ~MTH0 [address] [address] IMAGING REPORT Signed PATIENT: MINOR VOGT AACCOUNT: [id number] : 1940 LOCATION: ER AGE: 80 SEX: F EXAM STATUS: REG ER ORD. PHYSICIAN: MIKHAIL XAVIER MD REASON: fall PROCEDURE: CT HEAD AND CERVICAL SPINE WO CT HEAD AND C-SPINE WO Date: 09/15/2021 8:52 AM Clinical Indication: fall, pain Comparison: 07/09/2021. Technique: 5 mm axial tomographic images were obtained of the head without contrast. These were viewed on brain and bone windows. Noncontrast CT of the cervical spine was performed. Sagittal and coronal reformats were performed and evaluated. One or more of the following dose reduction techniques were utilized: Automated exposure control (AEC), Adjustment of mA and/or kV according to patient size, Use of iterative reconstruction technique such as ASiR, CT scan done according to ALARA and image gently/image wisely HEAD FINDINGS: Moderate generalized cerebral and cerebellar volume loss. Extensive nonspecific periventricular hypoattenuation, most commonly seen with chronic small vessel ischemic disease. No intra- or extra-axial mass or fluid collection. No acute hemorrhage. The ventricles are normal in size, shape, and morphology. The reid-white matter junction is normal. The basilar cisterns are patent. The visualized paranasal sinuses are normal. The visualized portions of the orbits and globes are normal. The mastoid air cells are clear. No aggressive osseous lesion or fracture. Left posterior scalp swelling. CERVICAL SPINE FINDINGS: The cervical spine is normally aligned. No acute fracture. No aggressive lytic or blastic osseous lesions. Moderate multilevel degenerative disc space height loss. Multilevel mild and moderate spinal canal stenosis secondary to disc protrusions and marginal osteophytes. Multilevel mild and moderate neuroforaminal narrowing secondary to uncovertebral arthrosis. Multilevel mild facet arthrosis. Bilateral thyroid nodules, better characterized on prior thyroid ultrasound 09/28/2010. No cervical lymphadenopathy. Bilateral carotid atherosclerosis. The visualized aerodigestive tract is normal. The visualized portions of the lungs are clear. IMPRESSION: 1. No acute intracranial process. Left posterior scalp swelling. 2. No acute cervical spine fracture. Electronically signed by: Pa Ugarte MD (09/15/2021 9:34 AM) [id number] DICTATED AND SIGNED BY: PA UGARTE MD DATE: 09/15/21 0929 CC: JAYNA LUI MD; MIKHAIL XAVIER MD ~MTH0 0 Heart Score: C/O Chest Pain: No Risk Factors: Risk Factors: DM, Current or recent (<one month) smoker, HTN, HLP, family history of CAD, obesity. Risk Scores: Score 0 - 3: 2.5% MACE over next 6 weeks - Discharge Home Score 4 - 6: 20.3% MACE over next 6 weeks - Admit for Clinical Observation Score 7 - 10: 72.7% MACE over next 6 weeks - Early Invasive Strategies Course & Med Decision Making: Course & Med Decision Making Pertinent Labs and Imaging studies reviewed. (See chart for details) Labs are unremarkable and imaging negative for acute injury. Patient is alert and cooperative. C-spine cleared. Patient discharged back to nursing facility Dragon Disclaimer: Dragon Disclaimer: This electronic medical record was generated, in whole or in part, using a voice recognition dictation system. Departure Departure: Impression: Primary Impression: Fall Disposition: 01 HOME / SELF CARE / HOMELESS Condition: STABLE Referrals: JAYNA LUI MD (PCP) Patient Instructions: Fall Prevention and Home Safety MIKHAIL XAVIER MD Sep 15, 2021 08:43
[2021-09-15 09:11] LABS: BASO # 0.1 x10^3/uL (0.0-0.2); BASO % 1 % (0-3); EOS # 0.9 x10^3/uL (0.0-0.7); EOS % 13 % (0-3); HEMATOCRIT 36.6 % (36.0-47.0); HEMOGLOBIN 12.1 g/dL (12.0-15.5); LYMPH # 1.5 x10^3/uL (1.0-4.8); LYMPH % 22 % (24-48); MEAN CORPUSCULAR HEMOGLOBIN 31 pg (25-35); MEAN CORPUSCULAR HGB CONC 33 g/dL (31-37); MEAN CORPUSCULAR VOLUME 95 fL (79-100); MONO # 0.6 x10^3/uL (0.0-1.1); MONO % 8 % (0-9); NEUT # 3.8 x10^3uL (1.8-7.7); NEUT % 56 % (31-73); PLATELET COUNT 285 x10^3/uL (140-400); RED BLOOD COUNT 3.87 x10^6/uL (3.50-5.40); RED CELL DISTRIBUTION WIDTH 13.7 % (11.5-14.5); WHITE BLOOD COUNT 6.9 x10^3/uL (4.0-11.0)
[2021-09-15 09:17] LABS: CALCIUM 9.3 mg/dL (8.5-10.1); CREATININE 0.8 mg/dL (0.6-1.0); POTASSIUM 3.7 mmol/L (3.5-5.1)
[2021-09-15 09:23] LABS: ALBUMIN 3.1 g/dL (3.4-5.0); ALBUMIN/GLOBULIN RATIO 0.9 (1.0-1.7); TOTAL BILIRUBIN 0.4 mg/dL (0.2-1.0); TOTAL PROTEIN 6.7 g/dL (6.4-8.2)
--- NOTE | 2021-09-15 09:37 | RAD ---
CT HEAD AND C-SPINE WO Date: 09/15/2021 8:52 AM Clinical Indication: fall, pain Comparison: 07/09/2021. Technique: 5 mm axial tomographic images were obtained of the head without contrast. These were view ed on brain and bone windows. Noncontrast CT of the cervical spine was performed. Sagittal and chapman l reformats were performed and evaluated. One or more of the following dose reduction techniques were utilized: Automated exposure control (AEC), Adjustment of mA and/or kV according to patient size, Us e of iterative reconstruction technique such as ASiR, CT scan done according to ALARA and image gentl y/image wisely HEAD FINDINGS: Moderate generalized cerebral and cerebellar volume loss. Extensive nonspecific periventricular hypoa ttenuation, most commonly seen with chronic small vessel ischemic disease. No intra- or extra-axial mass or fluid collection. No acute hemorrhage. The ventricles are normal in size, shape, and morphology. The reid-white matter junction is normal. The basilar cisterns are paten t. The visualized paranasal sinuses are normal. The visualized portions of the orbits and globes are no rmal. The mastoid air cells are clear. No aggressive osseous lesion or fracture. Left posterior scalp swelling. CERVICAL SPINE FINDINGS: The cervical spine is normally aligned. No acute fracture. No aggressive lytic or blastic osseous les ions. Moderate multilevel degenerative disc space height loss. Multilevel mild and moderate spinal canal st enosis secondary to disc protrusions and marginal osteophytes. Multilevel mild and moderate neurofora montse narrowing secondary to uncovertebral arthrosis. Multilevel mild facet arthrosis. Bilateral thyroid nodules, better characterized on prior thyroid ultrasound 09/28/2010. No cervical lym phadenopathy. Bilateral carotid atherosclerosis. The visualized aerodigestive tract is normal. The visualized portions of the lungs are clear. IMPRESSION: 1. No acute intracranial process. Left posterior scalp swelling. 2. No acute cervical spine fracture. Electronically signed by: Nitin Ugarte MD (09/15/2021 9:34 AM) [id number]
--- NOTE | 2021-09-15 09:41 | RAD ---
CT CHEST_ABDOMEN_ AND PELVIS WITHOUT CONTRAST INDICATION: Pain, fall COMPARISON: None. TECHNIQUE: Multiple contiguous axial images were obtained throughout the chest, abdomen, and pelvis without the use of IV contrast. Axial images were reformatted into coronal and sagittal planes. One or more of th e following dose reduction techniques were utilized: Automated exposure control (AEC), Adjustment of mA and/or kV according to patient size, Use of iterative reconstruction technique such as ASiR, CT sc an done according to ALARA and image gently/image wisely. FINDINGS: Chest Findings: There is no axillary, mediastinal, or hilar adenopathy, although evaluation of the leydi is limited wi thout IV contrast. The thoracic aorta diameter is normal. The cardiac size is normal. Coronary artery atherosclerotic di sease There is no pericardial effusion. The central airways are patent. Lungs are clear. No pleural abnormality. Abdomen findings: Evaluation of solid abdominal viscera is limited without the use of IV contrast. However, the liver, gallbladder, spleen, pancreas, and adrenal glands are unremarkable. The kidneys are unremarkable. There is no significant mesenteric or retroperitoneal adenopathy identified, though evaluation is nuñez ited without intravenous contrast. There is no evidence of free intraperitoneal fluid or pneumoperit oneum. Colonic diverticulosis. Diffuse aortoiliac atherosclerotic disease Pelvis findings: The bladder and distal ureters are unremarkable. There is no significant pelvic ascites. No signifi cant iliac or inguinal adenopathy is identified. Degenerative changes of the spine. Left convex lumbar curvature. IMPRESSION: No evidence of major traumatic thoracic injury. No abdominal solid organ injury. Electronically signed by: Nitin Ugarte MD (09/15/2021 9:39 AM) [id number]
[2021-09-15 10:10] VITALS: BP 145/72
== END 2021-09-15 10:15 | disposition home or self-care (01) ==
LOC: ER 08:34
DX: Z04.3 Encounter for examination and observation following other accident (principal); R51.9 Headache, unspecified; F03.90 Unspecified dementia, unspecified severity, without behavioral disturbance, psychotic disturbance, mood disturbance, and anxiety; F32.9 Major depressive disorder, single episode, unspecified; E11.9 Type 2 diabetes mellitus without complications; E78.00 Pure hypercholesterolemia, unspecified; I10 Essential (primary) hypertension; Z87.440 Personal history of urinary (tract) infections; Z88.1 Allergy status to other antibiotic agents; W18.39XA Other fall on same level, initial encounter; Y93.89 Activity, other specified; Y92.89 Other specified places as the place of occurrence of the external cause; Y99.8 Other external cause status
CPT/HCPCS: 36415; 70450; 71250; 72125; 74176; 80053; 85025; 99284